=== PATIENT | female | born 1955 | race Native Hawaiian/Other Pacific Islander ===

== ENCOUNTER 2019-07-10 10:09 | Outpatient (CLI) | payer OTHER ==
[2019-07-10 11:20] LABS: PLATELET COUNT 285 K/uL (152-353)
== END 2019-07-10 19:49 | disposition home or self-care (01) ==
LOC: MAMMO 10:09 → LAB 10:09 → MAMMO 10:30
PROVIDERS: Internal Medicine
DX: Z00.00 Encounter for general adult medical examination without abnormal findings (principal); Z12.31 Encounter for screening mammogram for malignant neoplasm of breast; Z13.820 Encounter for screening for osteoporosis; N95.8 Other specified menopausal and perimenopausal disorders; E03.8 Other specified hypothyroidism
CPT/HCPCS: 80053; 80061; 81000; 84439; 84443; 85027

== ENCOUNTER 2019-08-13 09:56 | Outpatient (CLI) | payer OTHER | END 2019-08-13 20:18 | disposition home or self-care (01) | LOC: RESP 09:56 | DX: C54.1 Malignant neoplasm of endometrium (principal) | CPT/HCPCS: 93005 ==

== ENCOUNTER 2020-07-24 09:35 | Outpatient (CLI) | payer OTHER ==
[2020-07-24 10:38] LABS: PLATELET COUNT 284 K/uL (152-353)
[2020-07-24 11:06] LABS: POTASSIUM 4.2 mmol/L (3.6-5.2)
== END 2020-07-24 22:18 | disposition home or self-care (01) ==
LOC: MAMMO 09:35
PROVIDERS: ATTEND Nurse Practitioner Family
DX: Z00.00 Encounter for general adult medical examination without abnormal findings (principal); Z12.31 Encounter for screening mammogram for malignant neoplasm of breast; Z13.820 Encounter for screening for osteoporosis; C54.1 Malignant neoplasm of endometrium; Z79.899 Other long term (current) drug therapy
CPT/HCPCS: 36415; 80053; 80061; 81000; 82306; 84439; 84443; 85027